=== PATIENT | female | born 1950 | race Caucasian/White ===

== ENCOUNTER 2024-08-05 16:31 | Emergency (ER) | payer MEDICARE, BC, SELFPAY ==
[2024-08-05 17:00] VITALS: BP 149/73; PULSE 84; RESP 18; TEMP 36.9; O2SAT 97
[2024-08-05 17:01] VITALS: PULSE 82; RESP 20; O2SAT 99; BMI 23.5
--- NOTE | 2024-08-05 17:19 | XR_ITS ---
Examination:Left hip AP, lateral, AP pelvis 3 views Technique: Hip AP lateral, AP pelvis, 3 views Exam date and time:August 05, 2024 1729 hrs. Indications: Patient fell today with into the hip, hip pain Findings: Acute displaced left femoral neck fracture Prominent osteopenia Right hip bones of the pelvis intact Impression: Acute displaced left femoral neck fracture.
--- NOTE | 2024-08-05 17:22 | PD.EDRME ---
Rapid Medical Screening Exam RME Arrival date/time: 08/05/24 16:31 Chief Complaint: Fall Vital signs: Vital Signs Temperature 98.5 F 08/05/24 17:00 Pulse Rate 84 08/05/24 17:00 Respiratory Rate 18 08/05/24 17:00 Blood Pressure 149/73 H 08/05/24 17:00 Pulse Oximetry (%) 97 08/05/24 17:00 Oxygen Delivery Method Room Air 08/05/24 17:00 RME Narrative: 73-year-old female with a history of hypothyroid, does not take blood thinners, had a ground level fall while she was trying to hang decorations and being tangled by the leash of her dog. She landed on her left hip without injury to her head or neck. She complains primarily of left hip pain but is not able to bear weight therefore EMS was called. Focused examination reveals an externally rotated left leg that is not shortened, however has significant pain to internal and external rotation. Remainder of LLE nl. Focused workup initiated and further encounter and workup be done by the additional provider.
[2024-08-05 18:25] VITALS: BP 119/66; PULSE 81; RESP 16; TEMP 37.2; O2SAT 97
--- NOTE | 2024-08-05 18:38 | EKG_ITS ---
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
--- NOTE | 2024-08-05 19:35 | PC.NURSE ---
[facility] FAXED PAPERWORK FOR POSSIBLE ORTHO TRANSFER
--- NOTE | 2024-08-05 19:35 | PC.NURSE ---
[facility] FAXED PAPERWORK FOR POSSIBLE ORTHO TRANSFER
[2024-08-05 19:38] LABS: Basophils % (Auto) 0 % (0-2.5); Eosinophils # (Auto) 0.2 Thou/mm3 (0.0-0.5); Eosinophils % (Auto) 1 % (0-10); Hematocrit 36.1 % (36.0-46.0); Hemoglobin 11.9 g/dL (12.0-16.0); Immature Granulocytes % (Auto) 2 % (0-0); Immature Granulocytes Auto 0.26 Thou/mm3 (0.00-0.00); Lymphocytes # (Auto) 0.8 Thou/mm3 (1.0-4.8); Lymphocytes % (Auto) 5 % (10-50); Mean Corpuscular Hemoglobin 30.6 pg (25.0-35.0); Mean Corpuscular Volume 93 fL (80-100); Monocytes # (Auto) 1.7 Thou/mm3 (0.0-0.8); Monocytes % (Auto) 11 % (0-12); Neutrophils # (Auto) 13.4 Thou/mm3 (1.8-7.7); Neutrophils % (Auto) 81 % (37-80); Nucleated Red Blood Cell % 0 /100 WBC (0); Platelet Count 154 Thou/mm3 (140-440); RDW Standard Deviation 47.7 fL (36.4-46.3); Red Blood Count 3.89 Miln/mm3 (4.00-5.20); White Blood Count 16.4 Thou/mm3 (3.6-11.0)
[2024-08-05] MEDS: SODIUM CHLORIDE 0.9% 500 ML 500 ML 999 ML IV (19:49)
[2024-08-05] MEDS: HYDROmorphone INJ 2 MG/ML VIAL 0.5 MG IVP ×3 (19:49→22:43)
[2024-08-05] MEDS: ONDANSETRON INJ 2 MG/ML INJ 2 ML 4 MG IV (19:50)
[2024-08-05 20:00] LABS: INR 1.1 (0.9-1.3); Partial Thromboplastin Time 27.3 Seconds (22.0-36.0); Prothrombin Time 12.1 Seconds (9.0-12.2)
[2024-08-05 20:01] LABS: Alanine Aminotransferase 17 U/L (10-49); Albumin, Serum 4.6 gm/dL (3.4-4.8); Albumin/Globulin Ratio 1.9 (1.2-2.2); Alcohol, Blood Medical < 3.0 mg/dL (0-10.0); Alkaline Phosphatase 47 U/L (46-116); Anion Gap 8 (7-16); Aspartate Amino Transferase 19 U/L (0-34); BUN/Creatinine Ratio 16 Ratio (12-20); Bilirubin,Total 0.9 mg/dL (0.3-1.2); Blood Urea Nitrogen 11 mg/dL (9-23); Calcium 9.8 mg/dL (8.3-10.6); Calcium (Corrected) 9.8 mg/dL (8.5-10.1); Carbon Dioxide 26.1 mMol/L (20.0-31.0); Chloride 102 mMol/L (98-107); Creatinine (Component) 0.7 mg/dL (0.6-1.3); Estimated Creatinine Clearance 69.6 mL/min (>60); Globulin 2.4 gm/dL (2.3-3.5); Glucose 107 mg/dL (74-106); Lipase 33 U/L (12-53); Osmolality,Calculated 271 (275-295); Potassium 3.4 mMol/L (3.4-5.1); Sodium 136 mMol/L (136-145); Troponin I < 0.020 ng/mL (0.0-0.045); eGFR > 60 See Note
--- NOTE | 2024-08-05 20:26 | PC.NURSE ---
THIS PT IS ACCEPTED TO [facility] BY DR. MARLYN MCGINNIS. THIS IS A ER:ER TRANSFER AND NUMBER FOR REPORT IS [phone]. [facility] WAS THE FACILITY REP I SPOKE WITH FOR ACCEPTING.
[2024-08-05 20:38] VITALS: BP 119/71; PULSE 88; RESP 18; O2SAT 98
--- NOTE | 2024-08-05 20:44 | EDNOTE_ITS ---
ED Fall Injury RME/HPI General Chief Complaint: Fall Stated Complaint: fall Time Seen by Provider: 08/05/24 18:19 Arrival date/time: 08/05/24 16:31 RME / HPI RME / HPI Narrative: 73-year-old female with a history of hypothyroid, does not take blood thinners, had a ground level fall while she was trying to hang decorations and being tangled by the leash of her dog. She landed on her left hip without injury to her head or neck. She complains primarily of left hip pain but is not able to bear weight therefore EMS was called. Focused examination reveals an externally rotated left leg that is not shortened, however has significant pain to internal and external rotation. Remainder of LLE nl. Focused workup initiated and further encounter and workup be done by the additional provider. Dr. Mckeon?s Main ED Evaluation: 73-year-old female with history of hypothyroidism presents to the emergency department via EMS after ground-level fall at home. Patient states she was walking her dog when the leash got tangled in her legs. She fell down hard on her left side, landing on her left hip. Patient states she was unable to stand after that and crawled into her kitchen where she called family and EMS. EMS brought her to the emergency department. Patient denies head strike, loss of consciousness, symptoms prior to the fall. Patient denies neck pain, focal neurologic complaints. 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 No shortness of breath, abdominal pain, lower back pain, upper back pain. No flank pain. No right lower extremity or upper extremity pain. No chest pain or dyspnea. Related Data Home Medications ?Medication ?Instructions ?Recorded ?Confirmed No Known Home Medications 10/23/17 10/23/17 Allergies Allergy/AdvReac Type Severity Reaction Status Date / Time latex Allergy Severe RASH ALL Verified 05/15/21 15:21 OVER peanut Allergy Severe Swelling Verified 05/15/21 15:21 of Lip/Tongue/Throat Review of Systems Review of Systems Systems Reviewed: All systems reviewed, normal except as documented Past Medical History Past Medical History CARDIAC: Negative Cardiac Disorders or Congestive Heart Failure RESPIRATORY: Negative Chronic Obstructive Pulmonary Disease (COPD) or Asthma GENITOURINARY: Negative Renal Disease ENDOCRINE: Positive Hypothyroidism; Negative Diabetes Mellitus Type 1 or Diabetes Mellitus Type 2 HEMATOLOGIC: Negative Sickle Cell Disease Social History SMOKING STATUS: Never smoker ED Exam Narrative Physical exam: GENERAL APPEARANCE: alert and oriented x 4, well-developed, well-nourished, no acute distress VITALS: All vitals were reviewed and the pulse ox is 98% on room air, which is normal according to my interpretation. HEENT: Normocephalic, atraumatic; pupils equal, round, reactive to light; EOMI; mucous membranes pink, moist; oropharynx clear; no midline C-spine tenderness NECK: Supple LUNGS: CTABL; no wheezes, no rales, no rhonchi HEART: Regular rate, regular rhythm; normal S1, S2; no murmurs ABDOMEN: non distended; normal BS; soft, no tenderness, no guarding, no rebound; no masses, no organomegaly, no hernia BACK: no CVA tenderness EXTREMITIES: LLE is shortened and externally rotated with exquisite tenderness to palpation of that limb, normal pulses to the posterior tibia and dorsalis pedis on the LLE, cap refill is less than 2 seconds to the LLE, no edema NEUROLOGIC: awake; alert and oriented x4; cranial nerves II-XII grossly intact; no focal sensory or motor deficits PSYCHIATRIC: appropriate mood and affect SKIN: warm, dry, normal color; no rashes Course Quality Measures none Orders Category Date Time Status Advisory Application Developer NOW Care 08/05/24 18:39 Completed Continuous Pulse Oximetry NOW Care 08/05/24 18:38 Completed EKG (ED ONLY) *Do not use* NOW Care 08/05/24 18:39 Completed Insert IV NOW Care 08/05/24 18:39 Completed NPO NOW Care 08/05/24 18:38 Completed EKG (ED Only) Stat Exams 08/05/24 18:38 Draft XR hip LT w pelvis 2-3V Stat Exams 08/05/24 17:19 Completed Alcohol, Blood Medical Stat Lab 08/05/24 19:24 Completed CBC Stat Lab 08/05/24 19:24 Completed Comprehensive Metabolic Panel Stat Lab 08/05/24 19:24 Completed Lipase Stat Lab 08/05/24 19:24 Completed Partial Thromboplastin Time Stat Lab 08/05/24 19:24 Completed Prothrombin Time with INR Stat Lab 08/05/24 19:24 Completed Troponin I Stat Lab 08/05/24 19:24 Completed Urinalysis Stat Lab 08/05/24 21:40 Completed HYDROmorphone INJ [Dilaudid Inj] Med 08/05/24 18:45 Discontinued 0.5 mg IVP Q30MIN PRN Morphine Inj [Morphine Sulf Inj] Med 08/05/24 17:20 Discontinued 4 mg IV X1 PRN Ondansetron Inj [Zofran Inj] Med 08/05/24 18:43 Discontinued 4 mg IV X1 ONE Sodium Chloride 0.9% 500 ml [Ns] 500 ml Med 08/05/24 18:38 Discontinued IV 999 mls/hr Vital Signs Vital signs: Vital Signs Temperature 98.5 F 08/05/24 17:00 Pulse Rate 84 08/05/24 17:00 Respiratory Rate 18 08/05/24 17:00 Blood Pressure 149/73 H 08/05/24 17:00 Pulse Oximetry (%) 97 08/05/24 17:00 Oxygen Delivery Method Room Air 08/05/24 17:00 Fall MDM Narrative MDM Narrative:: Patient has a left-sided femoral neck fracture. After phone calls the patient was accepted at [facility] by Dr. Joe Coker (orthopod). She is to be transferred. Patient was given Dilaudid 0.5 mg IV push every 30 minutes as needed pain as well as Zofran and fluids Patient data External records reviewed:: [facility] previous records (Per chart review, patient has no relevant previous ED visits or admissions to this facility.) Clinical information provided by:: patient Social determinants that could affect healthcare access:: none Patient has the following chronic illnesses:: none How is presenting disease/condition affected by chronic disease/condition?: no chronic disease Evaluation data The following diagnostics were reviewed and interpreted by me:: lab results, radiology exam(s) and EKG tracing(s) Lab and/or radiology exams considered but not ordered:: none Interpretation Summary: WBC count is elevated at 16.4, CMP is normal, troponin is normal, UA is unremarkable, blood alcohol is negative, according to my interpretation. EKG done at 1916, NSR, rate of 79, normal axis, no ectopy, no acute ischemia, according to my interpretation. ---- [facility] Report Signed Patient: RACHELLE CABRERA [facility]. Record#: [id number] Birthdate: 1950 Age/Sex: 73 / F Location: [facility] Attending Dr: Ordering Physician: Felipe North MD Date of Service: 08/05/24 Procedure(s): XR hip LT w pelvis 2-3V Accession Number(s): [id number] cc: Karyna Marquez MD; Felipe North MD; Gonzalez Tomas MD~ Examination:Left hip AP, lateral, AP pelvis 3 views Technique: Hip AP lateral, AP pelvis, 3 views Exam date and time:August 05, 2024 1729 hrs. Indications: Patient fell today with into the hip, hip pain Findings: Acute displaced left femoral neck fracture Prominent osteopenia Right hip bones of the pelvis intact Impression: Acute displaced left femoral neck fracture. Dictated By: Gonzalez Tomas MD Signed By: <Electronically signed by Gonzalez Tomas MD in OV> 08/05/24 1802 Medications / Prescriptions Medications or Prescriptions considered but not ordered:: none Medication administrations:: Medication Administration History Discontinued Medications Hydromorphone HCl (Hydromorphone Inj 2 Mg/Ml Vial) 0.5 mg IVP Q30MIN PRN PRN Reason: PAIN RATED 7-10 Stop: 08/06/24 18:44 Last Admin: 08/05/24 22:43 Dose: 0.5 mg Documented By: Admin: 08/05/24 21:20 Dose: 0.5 mg Documented By: Admin: 08/05/24 19:49 Dose: 0.5 mg Documented By: TC Sodium Chloride (Ns) 500 mls @ 999 mls/hr IV .Q31M ONE Stop: 08/05/24 19:08 Last Infusion: 08/05/24 20:45 Dose: Infused Documented By: Admin: 08/05/24 19:49 Dose: 999 mls/hr Documented By: TC Morphine Sulfate (Morphine Sulf Inj 4 Mg/Ml Vial) 4 mg IV X1 PRN PRN Reason: PAIN Stop: 08/05/24 20:19 Ondansetron HCl (Ondansetron Inj 2 Mg/Ml Inj 2 Ml) 4 mg IV X1 ONE; Protocol Stop: 08/05/24 18:44 Last Admin: 08/05/24 19:50 Dose: 4 mg Documented By: TC see above Consultations Consultation(s) initiated? (list below): Yes Diagnosis Fall Differential Diagnosis: other (fracture, dislocation, contusion) Most likely diagnosis given after review of the tests above:: see below Admission Indicated Admission indicated?: not indicated Explain why admission is indicated or not indicated:: Patient requires a higher [id number] where there is an orthopedic surgeon available. Admission Request Was there a request for admission?: No Disposition Plan Disposition Plan: Transfer Discharge Plan Plan Patient Disposition: [facility] Prescriptions/Referrals Prescriptions/Med Rec: No Action No Known Home Medications Referrals: Karyna Marquez MD [Primary Care Provider] - In 1 week Problem List Clinical Impression: Femoral neck fracture, Ground-level fall Patient/Caregiver Discharge Instructions Print Language: Montserratian Stand Alone Forms: Jackie Award Info., Patient Portal Info Letter
[2024-08-05 21:44] LABS: Collection Type, Urine Clean Catch
[2024-08-05 21:49] LABS: Bilirubin,Urine Negative (Negative); Blood,Urine Negative (Negative); Clarity,Urine Clear (Clear/Hazy); Color,Urine Lt-Yellow (Lt Yel-Yel); Glucose, Urine Negative (Negative); Ketones,Urine 1+ (Negative); Leukocyte Esterase,Urine Negative (Negative); Nitrite,Urine Negative (Negative); PH,Urine 5.5 (5.0-7.0); Protein,Urine Negative (Neg - Trace); RBC,Urine < 1 /hpf (0-3); Specific Gravity,Urine 1.017 (1.001-1.035); Squamous Epithelial Cell,Urine < 1 /hpf (0-5); Urobilinogen,Urine Negative mg/dL (0.0-1.0); WBC,Urine < 1 /hpf (0-5)
--- NOTE | 2024-08-05 21:49 | PC.NURSE ---
two attempts to call report, first attempt @ 2138 and 2nd attempt @ 2148 phone goes to voicemail each time. message left to call for report
== END 2024-08-05 22:59 | disposition short-term general hospital (02) ==
PROVIDERS: Emergency Provider Emergency Medicine; PCP Internal Medicine
DX: S72.002A Fracture of unspecified part of neck of left femur, initial encounter for closed fracture (principal); I44.0 Atrioventricular block, first degree; W18.30XA Fall on same level, unspecified, initial encounter; Z75.1 Person awaiting admission to adequate facility elsewhere
CPT/HCPCS: 36415; 73502; 80053; 80320; 81001; 83690; 84484; 85025; 85610; 85730; 93005; 96361; 96374; 96375; 99285; J2405; J3490; J7040; G0480

== ENCOUNTER 2025-01-06 02:32 | Inpatient (IN) | payer MEDICARE, BC, SELFPAY ==
[2025-01-06 02:32] VITALS: BMI 23.5
[2025-01-06 02:39] VITALS: BP 159/79; PULSE 80; RESP 18; TEMP 36.7; O2SAT 100
--- NOTE | 2025-01-06 02:52 | PD.EDRME ---
Rapid Medical Screening Exam E Arrival date/time: 01/06/25 02:32 Chief Complaint: Extremity Injury, Upper Time Seen by Provider: 01/06/25 02:36 Vital signs: Vital Signs Temperature 98.1 F 01/06/25 02:39 Pulse Rate 80 01/06/25 02:39 Respiratory Rate 18 01/06/25 02:39 Blood Pressure 159/79 H 01/06/25 02:39 Pulse Oximetry (%) 100 01/06/25 02:39 Oxygen Delivery Method Room Air 01/06/25 02:39 E Narrative: Right index finger poked by a stinging nettle 2 days ago, c/o swelling and redness to right index finger that has gradually worsened since onset.
--- NOTE | 2025-01-06 02:54 | XR_ITS ---
Examination: Fingers, right hand second digit 3 views Technique: AP, oblique, lateral views right hand second digit 3 views. Exam date and time: January 06, 2025 0307 hours INDICATIONS: Puncture injury to the hand 2 days ago with index finger swelling and pain FINDINGS: Soft tissue swelling about the second digit No fracture. No cortical bone destruction No foreign body IMPRESSION: No cortical bone destruction or foreign body
[2025-01-06 04:29] VITALS: BP 156/76; PULSE 76; RESP 18; TEMP 36.9; O2SAT 98
[2025-01-06 04:53] LABS: Basophils % (Auto) 0 % (0-2.5); Eosinophils # (Auto) 0.1 Thou/mm3 (0.0-0.5); Eosinophils % (Auto) 1 % (0-10); Hematocrit 38.6 % (36.0-46.0); Hemoglobin 12.9 g/dL (12.0-16.0); Immature Granulocytes % (Auto) 1 % (0-0); Immature Granulocytes Auto 0.06 Thou/mm3 (0.00-0.00); Lymphocytes # (Auto) 1.4 Thou/mm3 (1.0-4.8); Lymphocytes % (Auto) 14 % (10-50); Mean Corpuscular HGB Conc 33.4 g/dl (31.0-37.0); Mean Corpuscular Hemoglobin 30.1 pg (25.0-35.0); Mean Corpuscular Volume 90 fL (80-100); Monocytes % (Auto) 22 % (0-12); Neutrophils # (Auto) 5.9 Thou/mm3 (1.8-7.7); Neutrophils % (Auto) 63 % (37-80); Nucleated Red Blood Cell % 0 /100 WBC (0); Platelet Count 169 Thou/mm3 (140-440); RDW Standard Deviation 48.4 fL (36.4-46.3); Red Blood Count 4.29 Miln/mm3 (4.00-5.20); White Blood Count 9.5 Thou/mm3 (3.6-11.0)
[2025-01-06 05:17] LABS: Alanine Aminotransferase 14 U/L (10-49); Albumin, Serum 4.7 gm/dL (3.4-4.8); Albumin/Globulin Ratio 1.6 (1.2-2.2); Alkaline Phosphatase 60 U/L (46-116); Anion Gap 9 (7-16); Aspartate Amino Transferase 15 U/L (0-34); BUN/Creatinine Ratio 19 Ratio (12-20); Blood Urea Nitrogen 13 mg/dL (9-23); C-Reactive Protein < 0.5 mg/dL (0.0-0.9); Calcium 10.1 mg/dL (8.3-10.6); Calcium (Corrected) 10.1 mg/dL (8.5-10.1); Carbon Dioxide 26.2 mMol/L (20.0-31.0); Chloride 105 mMol/L (98-107); Creatinine (Component) 0.7 mg/dL (0.6-1.3); Estimated Creatinine Clearance 68.6 mL/min (>60); Globulin 2.9 gm/dL (2.3-3.5); Glucose 113 mg/dL (74-106); Osmolality,Calculated 280 (275-295); Potassium 3.9 mMol/L (3.4-5.1); Procalcitonin 0.07 ng/ml (0.0-0.49); Sodium 140 mMol/L (136-145); Total Protein 7.6 gm/dL (5.7-8.2); eGFR > 60 See Note
[2025-01-06 05:18] LABS: Sed Rate (ESR) 24 mm/hr (0-30)
--- NOTE | 2025-01-06 07:22 | PC.NURSE ---
Pt sitting up on stretcher upon assumption of care, reports that her pain is better but still there. Pt states she is ready to get home to her dogs.
--- NOTE | 2025-01-06 08:04 | PD.EDUPEX ---
Upper Extremity Injury RME/HPI General Chief Complaint: Extremity Injury, Upper Stated Complaint: RT HAND SWELLING X 2DAYS Time Seen by Provider: 01/06/25 02:36 Arrival date/time: 01/06/25 02:32 RME / HPI RME / HPI narrative: Right index finger poked by a stinging nettle 2 days ago, c/o swelling and redness to right index finger that has gradually worsened since onset. DR. MERRILL MAIN ED EVALUATION: 74 year old female presents to the ED for complaint of worsening right hand pain and swelling. Patient reports 3 days ago while gardening, she came into contact with sticky nettle , and while handling caused a puncture wound to right index finger (dominant hand). Initially symptoms were improving, but around midnight last night, she experienced throbbing pain, redness, and increased warmth in the hand. Additionally complains of diarrhea. She notes that she has had prior episodes of hand swelling after contact with sticky nettle, though never to this severity. Denies any drainage of pus from hand. Denies fevers or chills. Related Data Home Medications ?Medication ?Instructions ?Recorded ?Confirmed No Known Home Medications 10/23/17 10/23/17 Allergies Allergy/AdvReac Type Severity Reaction Status Date / Time latex Allergy Severe RASH ALL Verified 05/15/21 15:21 OVER peanut Allergy Severe Swelling Verified 05/15/21 15:21 of Lip/Tongue/Throat Review of Systems Review of Systems Narrative Review of Systems: Constitutional: DENIES; Fevers Eyes: DENIES; Loss of vision Head/Ear/Nose: DENIES; Loss of hearing Throat: DENIES; Dysphagia Cardiovascular: DENIES; Chest pain, dyspnea or syncope Respiratory: DENIES; Shortness of breath Gastrointestinal: DENIES; Rectal bleeding or melena. Genitourinary: DENIES; Dysuria (painful or difficult urination) Musculoskeletal: SEE HPI Skin: DENIES; Rash Neurological: DENIES; Loss of function or movement Psychiatric: DENIES; recent major life stressor, emotional problem, illicit drug use or abuse Endocrinology: DENIES; Weight change Hematologic/Lymphatic: DENIES; Abnormal bruising Allergic/Immunologic: DENIES; Urticaria (hives) Past Medical History Past Medical History CARDIAC: Negative Cardiac Disorders or Congestive Heart Failure RESPIRATORY: Negative Chronic Obstructive Pulmonary Disease (COPD) or Asthma GENITOURINARY: Negative Renal Disease ENDOCRINE: Positive Hypothyroidism; Negative Diabetes Mellitus Type 1 or Diabetes Mellitus Type 2 HEMATOLOGIC: Negative Sickle Cell Disease Social History SMOKING STATUS: Never smoker ED Exam Narrative Physical exam: Physical Exam: General: The vital signs were reviewed. The patient is non-toxic, in no apparent distress and appears healthy with a patent airway, no respiratory distress and has no apparent circulatory problems. Head & Scalp: Normocephalic, atraumatic. Face: Appears normal and is without lesions, deformity. Ears: Left external pinna appears normal. Right external pinna appears normal. Eyes: The sclera is anicteric. No obvious photophobia. The Left and Right Orbit/Lid/Conjunctiva appears normal without swelling, discoloration or injection. Nose: The nose is without deformity, discharge or tenderness; Throat: Appears normal. The mucous membranes are pink and moist without exudates, redness or mass seen. The tongue appears normal. Neck: The neck is supple and no apparent mass or adenopathy. Chest: The chest wall is normal in size and symmetry and has no chest wall tenderness or crepitus. The patient displays normal ventilator effort without retractions, accessory muscle use and has adequate air movement bilaterally with no wheezes and no rales. Cardiovascular: Regular rate and rhythm; No murmurs, rubs, or gallops; Gastrointestinal: The abdomen appears normal. No obvious hernias or mass. The abdomen is soft and benign, non-distended, with no pain, no guarding and no rebound tenderness. Bowel sounds are present and normal sounding. No CVA tenderness. Genitourinary: Back/Spine: Extremities/Musculoskeletal/lymphatic: Right index finger has a punctate lesion in the mid phalanx on the palmar side with redness and induration extending onto the palmar aspect just proximal to the MCP area and there is some redness extending onto the dorsum where the 2nd and 3rd MCPs lie and puffiness there is no tenosynovitis of the 3rd through 5th fingers. The palmar aspect has no tenderness on palpation there is some tenderness on the finger. The fingers and hand is neurovascularly intact. The bilateral upper and lower extremities are warm. There is no evidence of arterial insufficiency. There is no evidence of venous insufficiency/edema. The patient spontaneously moves bilateral upper and lower extremities with no pain and no limitation of movement. There is no apparent, injury or trauma. Skin: The skin is warm, dry and intact. No rashes. No petechia. No purpura. No abnormal bruising. The color is appropriate with no cyanosis. Mental status/Psychiatric: Mental status is appropriate for age. The patient has no apparent delusions, visual hallucinations, no apparent audible hallucinations. The patient has no apparent suicidal thoughts/ideation and no apparent homicidal thoughts/ideation. Neurological: The patient is awake, alert, interactive, cordial, cooperative and is oriented to name and situation. The patient follows commands and answers historical question with no impairment. There is no visual disturbance apparent. The pupils are equal and reactive bilaterally with normal eye movements and no diplopia The bilateral upper and lower extremities have normal strength, normal range of motion and normal functioning. The gait, station and balance appear to be baseline with no acute change Course Quality Measures none Orders Category Date Time Status Admit to Inpatient Status Routine Admission 01/06/25 11:47 Active Patient Condition Routine Admission 01/06/25 11:46 Ordered Activity as Tolerated Routine Care 01/06/25 11:48 Ordered Notify provider NEEDED Care 01/06/25 11:46 Active Sequential Compression Device QSHIFT Care 01/06/25 11:46 Active Consult to Orthopedic Stat Cons 01/06/25 10:00 Ordered Diet Regular Diet 01/06/25 Lunch Active XR finger RT min 2V Stat Exams 01/06/25 02:54 Completed Blood Culture (Lab) Stat Lab 01/06/25 04:10 Received CBC AM DRAW Lab 01/07/25 05:00 Ordered CBC AM DRAW Lab 01/08/25 05:00 Ordered CBC AM DRAW Lab 01/09/25 05:00 Ordered CBC Stat Lab 01/06/25 04:10 Completed CMP [Comprehensive Metabolic Panel] Stat Lab 01/06/25 04:10 Completed CRP [C-Reactive Protein] Stat Lab 01/06/25 04:10 Completed Comprehensive Metabolic Panel AM DRAW Lab 01/07/25 05:00 Ordered Comprehensive Metabolic Panel AM DRAW Lab 01/08/25 05:00 Ordered Comprehensive Metabolic Panel AM DRAW Lab 01/09/25 05:00 Ordered ESR [Sed Rate (ESR)] Stat Lab 01/06/25 04:10 Completed Lactate (Lactic Acid) Stat Lab 01/06/25 04:10 Completed Magnesium AM DRAW Lab 01/07/25 05:00 Ordered Magnesium AM DRAW Lab 01/08/25 05:00 Ordered Magnesium AM DRAW Lab 01/09/25 05:00 Ordered Phosphorous AM DRAW Lab 01/07/25 05:00 Ordered Phosphorous AM DRAW Lab 01/08/25 05:00 Ordered Phosphorous AM DRAW Lab 01/09/25 05:00 Ordered Procalcitonin Stat Lab 01/06/25 04:10 Completed Thyroid Stimulating Hormone Routine Lab 01/07/25 11:49 Ordered Acetaminophen Tab [Tylenol Tab] Med 01/06/25 11:46 Ordered 650 mg PO Q6H PRN Bupivacaine Mpf 0.5% [Sensorcaine-Mpf Inj 0.5%] Med 01/06/25 10:45 Discontinued 10 ml INFL X1 ONE Patient's Own Med [Patient's Own Medication] Med 01/07/25 02:00 Once 75 ea PO X1 ONE Piper/Tazo 3.375 gm Premix [Zosyn] Med 01/06/25 07:48 Discontinued 3.375 gm in 50 ml IV X1 Vancomycin Pharmacy to Dose Med 01/07/25 09:00 Ordered 1 each IV QDAY Vancomycin/Ns 1 gm Ivpb 200 ml Med 01/06/25 07:48 Discontinued IV X1 cefTRIAXone [Rocephin] 1 gm Med 01/06/25 11:50 Ordered SODIUM CHLORIDE 0.9% (Popper) [Ns 0.9% (P)] 50 ml IV QDAY Code Status Routine Oth 01/06/25 11:46 Ordered Oxygen Delivery PRN RT 01/06/25 11:46 Active Vital Signs Vital signs: Vital Signs Temperature 98.1 F 01/06/25 02:39 Pulse Rate 80 01/06/25 02:39 Respiratory Rate 18 01/06/25 02:39 Blood Pressure 159/79 H 01/06/25 02:39 Pulse Oximetry (%) 100 01/06/25 02:39 Oxygen Delivery Method Room Air 01/06/25 02:39 Pulse ox is 100% on room air which is adequate. Extremity Injury MDM Narrative MDM Narrative:: Belinda Cedillo am scribing for and in the presence of Dr. Merrill. Patient has an obvious puncture wound to the finger with a cellulitis moving up the finger but there is no tenosynovitis involving the hand and the palmar area does not appear to have any significant involvement at this time. Because the redness does extend to the MCP I had the orthopedic Dr Helton come down to look at this and he agrees this patient we manage here with IV antibiotics would not need referral or transfer to a hand specialist. Medical workup includes a CBC with a white count of 9.5 hemoglobin 12.9. ESR is 24 electrolytes are normal kidney function is normal lactic acid is normal X-ray of the hand reveals no fracture dislocation foreign body there is no gas in some tissue there is no cortical erosions. This is read by myself. 0845: I spoke with ortho Dr. Helton as noted below. 0910: Dr. Helton agrees to consult. He also said this patient does not need surgery and does not need to be transferred as we can manage this care request that we get Dr Clark to consult on antibiotics. 1001: I spoke with resident Dr. Miranda regarding admission as noted below. Procedure note patient has a small puncture wound in the palmar aspect of the second middle phalanx of the second finger is not bleeding there is no purulent discharge. Patient was verbally consented to I&D this and the procedure is as follows. Right index finger was prepped with Betadine. 0.5% bupivacaine was used with a local anesthetic over the wound. 11 blade was then used to make a small incision approximately 3 mm and then some blunt dissection was used to open up the dermis. There was no pus expressed. There was no foreign body found. The wound was washed with saline and then dressed no culture was was taken as there was no purulent material. Patient had less than 5 cc blood loss and tolerated the procedure well Hospitalist team came down saw the patient and agreed to admit Patient data External records reviewed:: [facility] previous records (I reviewed ED visit on 08/05/2024 for hip fx ) Clinical information provided by:: patient Social determinants that could affect healthcare access:: none Patient has the following chronic illnesses:: Hypothyroidism How is presenting disease/condition affected by chronic disease/condition?: uneffected by Evaluation data The following diagnostics were reviewed and interpreted by me:: lab results and radiology exam(s) Lab and/or radiology exams considered but not ordered:: None Interpretation Summary: Ordering Physician: Jaden Sparks PA-C Date of Service: 01/06/25 Procedure(s): XR finger RT min 2V Accession Number(s): [id number] cc: Kellie Jules MD; Gonzalez Tomas MD; Jaden Sparks PA-C~ Examination: Fingers, right hand second digit 3 views Technique: AP, oblique, lateral views right hand second digit 3 views. Exam date and time: January 06, 2025 0307 hours INDICATIONS: Puncture injury to the hand 2 days ago with index finger swelling and pain FINDINGS: Soft tissue swelling about the second digit No fracture. No cortical bone destruction No foreign body IMPRESSION: No cortical bone destruction or foreign body Dictated By: Gonzalez Tomas MD Signed By: <Electronically signed by Gonzalez Tomas MD in OV>01/06/25 0750 Medications / Prescriptions Medications or Prescriptions considered but not ordered:: None Medication administrations:: Medication Administration History Acetaminophen (Acetaminophen 325 Mg Tablet) 650 mg PO Q6H PRN PRN Reason: Fever >101.5 Stop: 02/05/25 11:45 Ceftriaxone Sodium 1 gm/ (Sodium Chloride) 50 mls @ 100 mls/hr IV QDAY TWYLA Stop: 01/13/25 11:49 Patient Own Medication (Patient's Own Med 1 Ea Ea) 75 ea PO X1 ONE Stop: 01/07/25 02:01 Pharmacy Consult (Vancomycin Pharmacy To Dose 1 Each Each) 1 each IV QDAY TWYLA Stop: 02/06/25 08:59 Discontinued Medications Bupivacaine HCl (Bupivacaine Mpf 0.5% 10 Ml Vial) 10 ml INFL X1 ONE Stop: 01/06/25 10:46 Vancomycin/Sodium Chloride (Vancomycin/Ns 1 Gm Ivpb) 200 mls @ 120 mls/hr IV X1 ONE Stop: 01/06/25 09:27 Last Admin: 01/06/25 08:14 Dose: 120 mls/hr Documented By: GENEVA Piperacillin/Tazobactam/Dextrose (Zosyn) 3.375 gm in 50 mls @ 100 mls/hr IV X1 ONE Stop: 01/06/25 08:17 Last Infusion: 01/06/25 08:42 Dose: Infused Documented By: Admin: 01/06/25 08:12 Dose: 100 mls/hr Documented By: TM See above Consultations Consultation(s) initiated? (list below): Yes Consultation #1 (Physician, Specialty, Details): I spoke with ortho Dr. Helton. Discussed patients PMHx, HPI, ED course, exam findings, labs, and radiology results. States he will come evaluate the patient in the ED. Time: 08:45 Consultation #2 (Physician, Specialty, Details): Ortho Dr. Helton is at bedside. He agrees to consult. Advised we also consult ID Dr. Clark. Time: 09:10 Consultation #3 (Physician, Specialty, Details): I spoke with resident Dr. Miranda. Discussed patients PMHx, HPI, ED course, exam findings, labs, and radiology results. The hospitalist agree to accept the patient for admission. Time: 10:01 Diagnosis Upper Extremity Injury Differential Diagnosis: other (Cellulitis, abscess, septic arthritis ) Most likely diagnosis given after review of the tests above:: Finger cellulitis Admission Indicated Admission indicated?: indicated Admission Request Was there a request for admission?: Yes Admission Attestation Admission request attestation: Discussed case with [] from Hospitalist service regarding admission. Discussed patients ED course, exam findings, labs, and radiology results. The Hospitalist [agrees,declines] to accept the patient for admission. Disposition Plan Disposition Plan: Admit Discharge Plan Plan Patient Disposition: Admit Acute Care w/in Hospital Disposition Comment: Hospitalist admit Prescriptions/Referrals Prescriptions/Med Rec: No Action No Known Home Medications Referrals: Kellie Jules [Primary Care Provider] - In 1 week Problem List Clinical Impression: Cellulitis of finger, Puncture wound Patient/Caregiver Discharge Instructions Print Language: Ecuadorean Stand Alone Forms: Patient Portal Info Letter
[2025-01-06] MEDS: PIPER/TAZO 3.375 GM PREMIX 3.375 GM/50 ML BAG IV (08:12)
[2025-01-06] MEDS: VANCOMYCIN/NS 1 GM IVPB 200 ML IV ×2 (08:14→20:31)
--- NOTE | 2025-01-06 11:52 | ESHP_ITS ---
<Statement entered by Nona Thorne MD - 01/08/25 08:18> I reviewed above note and agree with findings and plans. I have also personally examined the patient with medicine team and went over assessment and plan with medical team including public health internship and resident physician. <Statement entered by Veto Ribera MD - 01/06/25 19:29> 74-year-old female coming in with right hand swelling after scratch from an outdoor plant. Patient started on IV antibiotics. Ortho following, no need for special hand surgeon at this time.case discuss with team. Veto Ribera MD PGY3. Documentation for date of: 01/06/25 HPI History of Present Illness History of present illness: Ms. River is a 74-year-old female has a past medical history significant for hypothyroidism presented to the ED complaining of right index finger swelling extending down into her palm. Patient states that she was gardening on Saturday and is allergic to a very specific plant which she previously has experience with and was pulling weeds. And injured her hand with a thorn of the plant she is allergic to. Patient states previously the swelling usually have gone down within 2 to 3 days however this time around patient noticed the swelling has progressively worsened by today and she felt the hand to be warm to touch. Patient denies any fevers or night chills denies any noticing pus coming out of the wound. Patient has no other complaints including denies chest pain palpitations abdominal pain dizziness or syncopal episodes. ED course In the ED patient blood pressure is 159/79, pulse 80 saturating on room air Labs are unremarkable including Pro-Kimo .07, C-reactive less than 0.5 In the ED patient received Zosyn x 1 and vancomycin x 1 Finger X-ray: No cortical bone destruction or foreign body -In the ED pt underwent incision and drainage PMH: Hypothyroidism PSH: Left hip surgery in July 2024 SH: denies tabacco, alcohol and drugs Home Meds: Synthroid 75mcg Review of Systems Review of Systems Systems Reviewed: All systems reviewed, normal except as documented Exam Vital Signs Temp Pulse Resp BP Pulse Ox O2 Del Method 98.5 F 76 18 156/76 H 98 Room Air 01/06/25 04:29 01/06/25 04:29 01/06/25 04:29 01/06/25 04:29 01/06/25 04:29 01/06/25 04:29 Narrative Exam GENERAL: A&Ox3 . Awake, cooperative female, Not in acute distress NEURO: no focal neurological deficits HEENT: Atraumatic, Normocephalic. mucous membranes moist. Eyes open, symmetrical, & clear HEART: Normal Heart Sounds LUNGS: Clear to auscultation with no wheezing or crackles. ABDOMEN: soft, non-distended, non-tender, bowel sounds heard, no guarding or rebound tenderness SKIN: No Rash or ecchymoses, right index finger swollen, erythematous with no drainage of pus noted EXTREMITIES: No edema, tenderness, able to move all 4 extremities, pedal pulses palpated Results: Labs 01/06/25 04:10 01/06/25 04:10 Labs: Short CBC 01/06/25 Range/Units 04:10 WBC 9.5 (3.6-11.0) Thou/mm3 Hgb 12.9 (12.0-16.0) g/dL Hct 38.6 (36.0-46.0) % Plt Count 169 (140-440) Thou/mm3 BMP 01/06/25 04:10 Sodium 140 Potassium 3.9 Chloride 105 Carbon Dioxide 26.2 BUN 13 Creatinine 0.7 Glucose 113 H Calcium 10.1 Liver Function 01/06/25 Range/Units 04:10 Total Bilirubin 1.0 (0.3-1.2) mg/dL AST 15 (0-34) U/L ALT 14 (10-49) U/L Alkaline Phosphatase 60 (46-116) U/L Albumin 4.7 (3.4-4.8) gm/dL Quality Measures Quality Measures none Advance care planning discussed with:: patient Medications Home Medications and Allergies Home Medications ?Medication ?Instructions ?Recorded ?Confirmed ?Type No Known Home Medications 10/23/1710/10 History Allergies Allergy/AdvReac Type Severity Reaction Status Date / Time latex Allergy Severe RASH ALL Verified 05/15/21 15:21 OVER peanut Allergy Severe Swelling Verified 05/15/21 15:21 of Lip/Tongue/Throat Visit Medications Acetaminophen (Acetaminophen 325 Mg Tablet) 650 mg PO Q6H PRN PRN Reason: Fever >101.5 Stop: 02/05/25 11:45 Ceftriaxone Sodium 1 gm/ (Sodium Chloride) 50 mls @ 100 mls/hr IV QDAY [facility] Stop: 01/13/25 11:49 Patient Own Medication (Patient's Own Med 1 Ea Ea) 75 ea PO X1 ONE Stop: 01/07/25 02:01 Pharmacy Consult (Vancomycin Pharmacy To Dose 1 Each Each) 1 each IV QDAY TWYLA Stop: 02/06/25 08:59 Discontinued Medications Bupivacaine HCl (Bupivacaine Mpf 0.5% 10 Ml Vial) 10 ml INFL X1 ONE Stop: 01/06/25 10:46 Vancomycin/Sodium Chloride (Vancomycin/Ns 1 Gm Ivpb) 200 mls @ 120 mls/hr IV X1 ONE Stop: 01/06/25 09:27 Last Admin: 01/06/25 08:14 Dose: 120 mls/hr Piperacillin/Tazobactam/Dextrose (Zosyn) 3.375 gm in 50 mls @ 100 mls/hr IV X1 ONE Stop: 01/06/25 08:17 Last Infusion: 01/06/25 08:42 Dose: Infused Assessment & Plan Plan Ms. River is a 74-year-old female has a past medical history significant for hypothyroidism presented to the ED complaining of right index finger swelling extending down into her palm. And injured her hand with a thorn of the plant she is allergic to. #Cellulitis 2/2 #Gardening injury s/p incision and drainage -Pt has a thorn injury during gardening on saturday, denies fevers, or abcess formation -Swelling of index finger progressively worsened adn noted to have erythema and warmth on the finger extending into her palm. -Finger X-ray: No cortical bone destruction or foreign body Plan: -Pt is s/p incision and draignage in the ED, no pus was noted -In the ED pt received dose of vancomycin and zosyn on 01/06 -started pt on vancomycin and rocephin 01/07- -Tylenol PRN for pain and fever #Calvin's -Resume patient's home Synthroid 75mcg Health Maintenance Disposition: Medsurg DVT Prophylaxis: SCD QSHIFT GI Prophylaxis: not indicated Diet: regular diet Lines: Peripheral lines Code status: Full Assessment and plan discussed with my senior resident Dr. Ribera & attending physician Dr. Fadumo Miranda (PGY-1)- Internal medicine resident
[2025-01-06 14:36] VITALS: BMI 27.3
[2025-01-06 15:04] VITALS: PULSE 86; RESP 18; RESP 95
[2025-01-06 16:00] VITALS: BP 146/76; PULSE 72; RESP 18; TEMP 36.7; O2SAT 99
[2025-01-06 17:41] VITALS: PULSE 81; RESP 19; RESP 97
[2025-01-06 20:00] VITALS: BP 125/63; PULSE 78; RESP 17; TEMP 36.9; O2SAT 96
--- NOTE | 2025-01-06 21:15 | PD.ORTHCON ---
HPI Consult details Reason for consultation narrative: Pain right index finger History of present illness: Patient is a 74-year-old very active woman who was gardening on Saturday or Saturday and had a puncture wound right index finger she then came in on Saturday with significant swelling markedly increased pain and was admitted for treatment of right hand cellulitis primarily involving index finger Past Medical History Past Medical History NEUROLOGIC: Negative Neurological Disorders CARDIAC: Negative Cardiac Disorders or Congestive Heart Failure RESPIRATORY: Negative Respiratory Disorders, Chronic Obstructive Pulmonary Disease (COPD) or Asthma GENITOURINARY: Negative Renal Disease REPRODUCTIVE: Negative Pelvic Inflammatory Disease MUSCULOSKELETAL: Negative Musculoskeletal Disorders ENDOCRINE: Positive Hypothyroidism; Negative Diabetes Mellitus Type 1 or Diabetes Mellitus Type 2 HEMATOLOGIC: Negative Sickle Cell Disease OTHER HISTORY: Negative Autoimmune Disease or Anesthesia Reactions Surgical History SURGICAL: Positive Hip Sx (08/08/24); Negative Cardiac Surgery Social History SMOKING STATUS: Never smoker Meds Home Medications and Allergies Home Medications ?Medication ?Instructions ?Recorded ?Confirmed ?Type No Known Home Medications 10/23/17 10/23/17 History Allergies Allergy/AdvReac Type Severity Reaction Status Date / Time latex Allergy Severe RASH ALL Verified 05/15/21 15:21 OVER peanut Allergy Severe Swelling Verified 05/15/21 15:21 of Lip/Tongue/Throat Exam Vital Signs Temp Pulse Resp BP Pulse Ox O2 Del Method 98.5 F 78 17 125/63 96 Room Air 01/06/25 20:00 01/06/25 20:00 01/06/25 20:00 01/06/25 20:00 01/06/25 20:00 01/06/25 20:00 Blood pressure 125/63; temperature 98.5 Narrative Exam Patient was seen this morning at 09 100 and again tonight at 2100. She had marked swelling this morning of the right index and fortunately no pain over the palmar aspect of the right hand there was no pain over the metacarpal phalangeal joint most of the swelling was dorsal and then she had a small puncture wound volar aspect middle phalange he right index finger. I saw her with Dr. Mercedes rico again and we agreed to admit the patient. She is going to be on IV antibiotics. He made a small incision in the area of the puncture wound and no pus was encountered. She is feeling much better tonight and the swelling is down remarkably. Results - Ortho Labs 01/06/25 04:10 01/06/25 04:10 Labs: Short CBC 04/30/25 Range/Units 04:10 WBC 9.5 (3.6-11.0) Thou/mm3 Hgb 12.9 (12.0-16.0) g/dL Hct 38.6 (36.0-46.0) % Plt Count 169 (140-440) Thou/mm3 BMP 01/06/25 04:10 Sodium 140 Potassium 3.9 Chloride 105 Carbon Dioxide 26.2 BUN 13 Creatinine 0.7 Glucose 113 H Calcium 10.1 Liver Function 01/06/25 Range/Units 04:10 Total Bilirubin 1.0 (0.3-1.2) mg/dL AST 15 (0-34) U/L ALT 14 (10-49) U/L Alkaline Phosphatase 60 (46-116) U/L Albumin 4.7 (3.4-4.8) gm/dL White count 9500 Assessment & Plan Additional Assessment Additional comments: Patient has very unremarkable past medical history. He has enjoyed excellent health. The only medicine she takes is levothyroxine. She is given up sugar many years ago and as result feels very healthy Plan IV antibiotics to cover strep and staph. The most common is strep no abscess formation in remarkably fast spreading goes along with the strep cellulitis. Again remarkable improvement just in the last 12 hours. Possibly can go home tomorrow afternoon.
[2025-01-06] MEDS: lorataDINE 10 MG TABLET PO (21:52)
[2025-01-07] VITALS: BP 133/73; PULSE 80; RESP 17; TEMP 36.5; O2SAT 96
[2025-01-07 04:00] VITALS: BP 134/66; PULSE 77; RESP 17; TEMP 36.4; O2SAT 95
[2025-01-07 05:58] LABS: Basophils # (Auto) 0.1 Thou/mm3 (0.0-0.2); Basophils % (Auto) 1 % (0-2.5); Eosinophils % (Auto) 0 % (0-10); Hematocrit 35.1 % (36.0-46.0); Hemoglobin 11.5 g/dL (12.0-16.0); Immature Granulocytes % (Auto) 1 % (0-0); Immature Granulocytes Auto 0.03 Thou/mm3 (0.00-0.00); Lymphocytes # (Auto) 1.3 Thou/mm3 (1.0-4.8); Lymphocytes % (Auto) 27 % (10-50); Mean Corpuscular HGB Conc 32.8 g/dl (31.0-37.0); Mean Corpuscular Hemoglobin 29.8 pg (25.0-35.0); Mean Corpuscular Volume 91 fL (80-100); Monocytes # (Auto) 1.5 Thou/mm3 (0.0-0.8); Monocytes % (Auto) 31 % (0-12); Neutrophils % (Auto) 40 % (37-80); Nucleated Red Blood Cell % 0 /100 WBC (0); Platelet Count 145 Thou/mm3 (140-440); Red Blood Count 3.86 Miln/mm3 (4.00-5.20); White Blood Count 4.9 Thou/mm3 (3.6-11.0)
[2025-01-07 06:58] LABS: Alanine Aminotransferase 8 U/L (10-49); Albumin, Serum 4.1 gm/dL (3.4-4.8); Albumin/Globulin Ratio 1.8 (1.2-2.2); Alkaline Phosphatase 52 U/L (46-116); Anion Gap 6 (7-16); Aspartate Amino Transferase 11 U/L (0-34); BUN/Creatinine Ratio 15 Ratio (12-20); Blood Urea Nitrogen 9 mg/dL (9-23); Calcium 9.5 mg/dL (8.3-10.6); Calcium (Corrected) 9.5 mg/dL (8.5-10.1); Carbon Dioxide 29.3 mMol/L (20.0-31.0); Chloride 107 mMol/L (98-107); Creatinine (Component) 0.6 mg/dL (0.6-1.3); Globulin 2.3 gm/dL (2.3-3.5); Glucose 96 mg/dL (74-106); Magnesium 2.1 mg/dL (1.6-2.6); Osmolality,Calculated 281 (275-295); Phosphorous 3.2 mg/dL (2.4-5.1); Sodium 142 mMol/L (136-145); Thyroid Stimulating Hormone 1.38 uIU/mL (0.55-4.78); Total Protein 6.4 gm/dL (5.7-8.2); eGFR > 60 See Note
[2025-01-07 07:39] VITALS: BP 125/76; PULSE 77; RESP 13; TEMP 37.1; O2SAT 95
[2025-01-07] MEDS: VANCOMYCIN/NS 1 GM IVPB 200 ML IV (09:07)
[2025-01-07 11:35] VITALS: BP 124/65; PULSE 72; RESP 16; TEMP 36.4; O2SAT 96
--- NOTE | 2025-01-07 13:34 | ESDS_ITS ---
Planned Discharge Date 01/07/25 DS: Providers Provider Date of admission: 01/06/25 11:46 Primary care physician: Kellie Jules Admitting Provider: Nona Thorne MD Attending Provider on Admission: Vinh Keller MD Consults: 01/06/25 10:00 Consult to Orthopedic Stat Comment: Finger infection Consulting Provider: Ruben Helton Attending Provider on DC: Vinh Keller MD Discharging Provider: Vinh Keller MD DS: Diagnosis Problem List Completed Was Problem List Reviewed/Reconciled?: Yes Hospital Course Hospital Course Hospital course: 74-year-old female with past medical history of hypothyroidism was admitted to the hospital on 12/10/2024 due to right index finger cellulitis. In the ED patient currently complains of right index finger pain and swelling which had worsened for the previous 3 days. Initial labs were unremarkable with no WBC elevation and a negative procalcitonin. Initial imaging included finger x-ray which did not show any foreign body or fractures. Patient in the ED underwent incision and drainage with no pus was seen. Patient was placed on vancomycin to cover for staph. Orthopedic surgeon saw the patient as well and stated that patient could be discharged home this afternoon. At this time patient swelling has improved as well as her pain and she has been able to move her finger a lot more. Wound looked clean without any purulent discharge and very mild tenderness when palpated. At this time patient is stable enough to be discharged home. Discharge plan: Please follow-up with primary care physician within 1 week upon discharge You have been started on cephalexin 500 mg 4 times daily and doxycycline 100 mg twice daily for 9 more days. Wound care: Keep wound clean and dry and change dressing daily Watch for signs of infection such as worsening pain, purulent discharge, worsening swelling, worsening of redness Keep hand elevated whenever possible to reduce swelling Avoid activities that could cause the wound to reopen or become irritated or infected such as gardening work until wound has closed. Please come back to the ED if you develop fevers, chills, worsening pain, worsening swelling or any other worsening symptoms. Problem list: #Cellulitis R index finger s/p incision and drainage #Calvin's Case disclosed with Attending Dr. Krishna Ireen PGY1 Status at Discharge Overall status at discharge: patient is progressing back to baseline Time Spent with Patient Time attestation: Total time spent providing and/or coordinating discharge services:>35 min Time spent: Greater than 30 minutes Exam Vital Signs Temp Pulse Resp BP Pulse Ox O2 Del Method 97.6 F 72 16 124/65 96 Room Air 01/07/25 11:35 01/07/25 11:35 01/07/25 11:35 01/07/25 11:35 01/07/25 11:35 01/07/25 11:35 Narrative Exam General: A/O x3, no acute distress, well-nourished, well-developed Eyes: PERRL, EOMI. Anicteric, vision grossly intact. Ears: No ear pain, no ear discharge, Hearing grossly intact. Nose: No nasal discharge. Mouth/Throat: Moist mucous membranes, no redness, no lesions. Neck: Neck supple, non-tender, no cervical lymphadenopathy. Lungs: Clear BARBARA to auscultation and percussion, No accessory muscle use. Cardio: Normal S1/S2, regular rhythm, no murmurs, no JVD Abdomen: Soft, non-tender, no palpable masses, peristalsis present, no guarding or rebound. Extremities: Symmetrical, no significant deformities, no peripheral edema , R index finger mildly tender to palpation but with improved swelling and erythema, R index finger improved motion, but still not full ROM, peripheral pulses presents. Skin: No rashes, no lesions, warm to touch. Neuro: No focal neurological deficits. motor and sensory intact Psych: Cooperative, appropriate mood and effect. Discharge Plan Plan Patient Disposition: HOME (Self Care) Disposition Comment: Hospitalist admit Care Plan Goals: Please follow-up with primary care physician within 1 week upon discharge You have been started on cephalexin 500 mg 4 times daily and doxycycline 100 mg twice daily for 9 more days. Wound care: Keep wound clean and dry and change dressing daily Watch for signs of infection such as worsening pain, purulent discharge, worsening swelling, worsening of redness Keep hand elevated whenever possible to reduce swelling Avoid activities that could cause the wound to reopen or become irritated or infected such as gardening work until wound has closed. Please come back to the ED if you develop fevers, chills, worsening pain, worsening swelling or any other worsening symptoms. Prescriptions/Referrals Prescriptions/Med Rec: New doxycycline hyclate 100 mg capsule 100 mg PO BID Qty: 18 0RF cephalexin 500 mg capsule 500 mg PO QID 9 Days Qty: 36 0RF Referrals: Kellie Jules [Primary Care Provider] - Patient/Caregiver Discharge Instructions Education Materials: Discharge Instructions for Cellulitis Print Language: Armenian Activity Restrictions/Additional Instructions: Please follow-up with primary care physician within 1 week upon discharge You have been started on cephalexin 500 mg 4 times daily and doxycycline 100 mg twice daily for 9 more days. Wound care: Keep wound clean and dry and change dressing daily Watch for signs of infection such as worsening pain, purulent discharge, worsening swelling, worsening of redness Keep hand elevated whenever possible to reduce swelling Avoid activities that could cause the wound to reopen or become irritated or infected such as gardening work until wound has closed. Please come back to the ED if you develop fevers, chills, worsening pain, worsening swelling or any other worsening symptoms. Stand Alone Forms: Jackie Award Info., Patient Portal Info Letter Discharge Order Discharge Orders: Discharge (Routine); Ordered 01/07/25 Ordered By: Benji Irene Quality Discharge Quality Measures VTE prophylaxis Attestestation Attestation I reviewed labs, imaging, EKG, home medications and prior available records. Face to face evaluation was performed by me. I have personally examined the patient and discussed assessment and plan with the IM team. I reviewed the resident note and agree with the plan with exceptions as below. Cellulitis of the index finger, right Will discharge on Keflex and doxycycline Return to ED if symptoms got worse or if there is purulent discharge Continue self wound care at home Time spent is 35 minutes. More than 50% of the time was spent on patient education and coordination of care.
== END 2025-01-07 12:57 | disposition home or self-care (01) | DRG 603 ==
LOC: SERX 10:04 → SERHOLD 12:13 → S3SX 14:25
PROVIDERS: Physician Assistant; Admitting Provider Internal Medicine; Emergency Provider Emergency Medicine; PCP Internal Medicine; Visit Provider Student in an Organized Health Care Education/Training Program
DX: L03.011 Cellulitis of right finger (principal); S61.239A Puncture wound without foreign body of unspecified finger without damage to nail, initial encounter; E06.3 Autoimmune thyroiditis; W22.8XXA Striking against or struck by other objects, initial encounter
CPT/HCPCS: 36415; 73140; 80053; 83605; 83735; 84100; 84145; 84443; 85025; 85652; 86140; 87040; 96365; 96366; 96368; 99285; J2543; J3370; A9270

== ENCOUNTER 2025-03-24 17:52 | Emergency (ER) | payer MEDICARE, BC, SELFPAY ==
[2025-03-24 17:59] VITALS: PULSE 84; RESP 16; O2SAT 98
--- NOTE | 2025-03-24 18:01 | XR_ITS ---
Examination:Left hip AP, lateral, AP pelvis 3 views Technique: Hip AP lateral, AP pelvis, 3 views Exam date and time:March 24, 2025 1839 hours INDICATIONS: Injury to the hip today, hip pain and deformity. FINDINGS: Dislocation of the prosthetic femoral head relative to the prosthetic acetabulum The prosthetic femoral head is displaced cephalad Right hip intact Bones of the pelvis intact IMPRESSION: Prosthetic left hip dislocation.
[2025-03-24 18:08] VITALS: BMI 23.5
--- NOTE | 2025-03-24 18:17 | PC.NURSE ---
PATIENT ARRIVED ED VIA EMS WITH COMPLAINT OF LEFT HIP PAIN. PATIENT STATES SHE WAS BENDING OVER AND FELT A POP IN HER HIP. SHORTENING AND ROTATION TO LEFT LEG. PATIENT RECEIVED FENTYNAL 62 MEQ, TYLENOL 1000MG IV FOR PAIN 10/10 ON PAIN SCALE. UPON ARRIVAL PATIENT WITH PAIN 3/10. PATIENT MOVED TO [facility] AND PLACED IN GOWN AND ON MONITOR. PATIENT GIVEN CALL LIGHT AND WILL CONTINUE TO MONITOR.
[2025-03-24 18:21] VITALS: BP 127/74; PULSE 79; RESP 18; TEMP 37; O2SAT 96
[2025-03-24 18:22] VITALS: BP 127/74; PULSE 75; RESP 16; O2SAT 100
[2025-03-24 18:28] LABS: Basophils # (Auto) 0.0 Thou/mm3 (0.0-0.2); Basophils % (Auto) 1 % (0-2.5); Eosinophils # (Auto) 0.0 Thou/mm3 (0.0-0.5); Eosinophils % (Auto) 0 % (0-10); Hematocrit 36.5 % (36.0-46.0); Hemoglobin 12.5 g/dL (12.0-16.0); Immature Granulocytes Auto 0.04 Thou/mm3 (0.00-0.00); Lymphocytes # (Auto) 1.1 Thou/mm3 (1.0-4.8); Lymphocytes % (Auto) 17 % (10-50); Mean Corpuscular HGB Conc 34.2 g/dl (31.0-37.0); Mean Corpuscular Hemoglobin 31.0 pg (25.0-35.0); Mean Corpuscular Volume 91 fL (80-100); Monocytes # (Auto) 1.2 Thou/mm3 (0.0-0.8); Monocytes % (Auto) 18 % (0-12); Neutrophils # (Auto) 4.1 Thou/mm3 (1.8-7.7); Neutrophils % (Auto) 63 % (37-80); Nucleated Red Blood Cell # 0.00 Thou/mm3 (0.00-0.00); Nucleated Red Blood Cell % 0 /100 WBC (0); Platelet Count 177 Thou/mm3 (140-440); RDW Standard Deviation 47.2 fL (36.4-46.3); Red Blood Count 4.03 Miln/mm3 (4.00-5.20); White Blood Count 6.4 Thou/mm3 (3.6-11.0)
[2025-03-24 18:47] LABS: Alanine Aminotransferase 11 U/L (10-49); Albumin, Serum 4.8 gm/dL (3.4-4.8); Albumin/Globulin Ratio 2.1 (1.2-2.2); Alkaline Phosphatase 52 U/L (46-116); Anion Gap 10 (7-16); Aspartate Amino Transferase 17 U/L (0-34); BUN/Creatinine Ratio 14 Ratio (12-20); Bilirubin,Total 0.7 mg/dL (0.3-1.2); Blood Urea Nitrogen 11 mg/dL (9-23); Calcium 10.5 mg/dL (8.3-10.6); Calcium (Corrected) 10.5 mg/dL (8.5-10.1); Carbon Dioxide 27.5 mMol/L (20.0-31.0); Chloride 102 mMol/L (98-107); Creatinine (Component) 0.8 mg/dL (0.6-1.3); Estimated Creatinine Clearance 60.0 mL/min (>60); Globulin 2.3 gm/dL (2.3-3.5); Glucose 124 mg/dL (74-106); Osmolality,Calculated 277 (275-295); Potassium 3.8 mMol/L (3.4-5.1); Sodium 139 mMol/L (136-145); Total Protein 7.1 gm/dL (5.7-8.2); eGFR > 60 See Note
--- NOTE | 2025-03-24 19:18 | EDNOTE_ITS ---
Lower Extremity Injury RME/HPI General Chief Complaint: Hip Injury/Pain Stated Complaint: LEFT HIP PAIN Time Seen by Provider: 03/24/25 18:01 Source: patient and EMS Arrival date/time: 03/24/25 17:52 Mode of arrival: EMS Limitations: no limitations RME / HPI RME / HPI Narrative: Patient is a 74-year-old female with a history of hypothyroidism. She is brought in by EMS for left hip pain. She has a history of a total left hip replacement that was performed in [place], [place]. She states today she was in her long, she bent over, she felt a pop and sat herself on the ground. She states she has left hip pain and has been unable to ambulate. She has left leg shortening. She denies any traumatic injury otherwise. She received 60 mics of fentanyl en route by EMS. EMS reports distal pulses that are marked. There were no other reported injuries. Patient has no other complaints or concerns. Related Data Previous Rx's ?Medication ?Instructions ?Recorded doxycycline hyclate 100 mg capsule 100 mg PO BID #18 c aps 01/07/25 Allergies Allergy/AdvReac Type Severity Reaction Status Date / Time latex Allergy Severe RASH ALL Verified 05/15/21 15:21 OVER peanut Allergy Severe Swelling Verified 05/15/21 15:21 of Lip/Tongue/Throat Review of Systems Review of Systems Systems Reviewed: All systems reviewed, normal except as documented ED Exam General Limitations: Present no limitations General appearance: Present alert and in no apparent distress Head Head exam: Present atraumatic Eye Eye exam: Present normal appearance, PERRL and EOMI ENT ENT exam: Present normal exam, normal oropharynx and mucous membranes moist Neck Neck exam: Present normal inspection, full ROM and trachea midline Chest Chest inspection: Present normal inspection and symmetric chest wall rise Respiratory Respiratory exam: Present normal lung sounds bilaterally Cardiovascular Cardiovascular exam: Present regular rate, normal rhythm and normal heart sounds Abdominal Exam Abdominal exam: Present soft and normal bowel sounds Extremities Exam Extremities exam: Present other (There is left leg shortening, left leg is rotated internally. +2 pedal pulses are intact.) Neurological Exam Neurological exam: Present alert, oriented X3 and CN II-XII intact Psychiatric Psychiatric exam: Present normal affect and normal mood Skin Skin exam: Present warm, dry, intact and normal color Course Quality Measures none Orders Category Date Time Status XR hip LT w pelvis 2-3V Stat Exams 03/24/25 18:01 Completed CBC Stat Lab 03/24/25 18:21 Completed CMP [Comprehensive Metabolic Panel] Stat Lab 03/24/25 18:21 Completed HYDROmorphone INJ [Dilaudid Inj] Med 03/24/25 18:51 Discontinued 1 mg IVP X1 ONE Vital Signs Vital signs: Vital Signs Temperature 98.6 F 03/24/25 18:21 Pulse Rate 79 03/24/25 18:21 Respiratory Rate 18 03/24/25 18:21 Blood Pressure 127/74 03/24/25 18:21 Pulse Oximetry (%) 96 03/24/25 18:21 Oxygen Delivery Method Room Air 03/24/25 18:21 Extremity Injury, Lower MDM Narrative MDM Narrative:: Patient is a 74-year-old female with a history of hypothyroidism. She is brought in by EMS for left hip pain. She has a history of a total left hip replacement that was performed in [place], [place]. She states today she was in her long, she bent over, she felt a pop and sat herself on the ground. She states she has left hip pain and has been unable to ambulate. She has left leg shortening. She denies any traumatic injury otherwise. She received 60 mics of fentanyl en route by EMS. EMS reports distal pulses that are marked. There were no other reported injuries. Patient has no other complaints or concerns. On exam, patient is uncomfortable appearing but in no extreme distress. She has shortening of the left leg with internal rotation. There is no open wounds. She has no other sites of injury. +2, pedal pulses are intact bilaterally and are marked with a pen. Her CBC and CMP are unremarkable. Plain films were obtained which reveal a prosthetic hip dislocation with no fracture. Patient's pain has been controlled here in the ER. We do not have orthopedics on-call for consultation. Case was discussed with [facility] in [place], [place]. Unfortunately were able to transfer overnight. Their transfer center anticipate possible acceptance in the morning. This was discussed with the patient. I offered more pain medication. She states she simply wanted Tylenol and nothing else. Patient's care is signed out to Dr. Leach at shift change. Patient data External records reviewed:: [facility] previous records and EMS form Clinical information provided by:: patient and EMS Social determinants that could affect healthcare access:: none Patient has the following chronic illnesses:: n/a How is presenting disease/condition affected by chronic disease/condition?: uneffected by Evaluation data The following diagnostics were reviewed and interpreted by me:: lab results (CBC and CMP are unremarkable) and radiology exam(s) (Left-sided prosthetic hip dislocation) Lab and/or radiology exams considered but not ordered:: n/a Interpretation Summary: Left-sided hip dislocation Medications / Prescriptions Medications or Prescriptions considered but not ordered:: n/a Medication administrations:: Medication Administration History Discontinued Medications Hydromorphone HCl (Hydromorphone Inj 2 Mg/Ml Vial) 1 mg IVP X1 ONE Stop: 03/24/25 18:52 Last Admin: 03/24/25 23:15 Dose: Not Given Documented By: BD Non-Admin Reason: Patient Refused See above Consultations Consultation(s) initiated? (list below): No Diagnosis Extremity Injury, Lower Differential Diagnosis: fracture of femur and fracture of hip Most likely diagnosis given after review of the tests above:: Prostatic hip dislocation Admission Indicated Admission indicated?: indicated Admission Request Was there a request for admission?: Yes Admission Attestation Admission request attestation: Discussed case with [] from Hospitalist service regarding admission. Discussed patients ED course, exam findings, labs, and radiology results. The Hospitalist [agrees,declines] to accept the patient for admission. Disposition Plan Disposition Plan: Transfer Discharge Plan Plan Patient Disposition: [facility] Facility Pt Being Transferred to: [facility] Service Needed for Transfer: Orthopedics Patient condition on transfer: Stable Prescriptions/Referrals Prescriptions/Med Rec: No Action doxycycline hyclate 100 mg capsule 100 mg PO BID Qty: 18 0RF Referrals: No Primary/Family,Physician [Primary Care Provider] - In 1 week Problem List Clinical Impression: Dislocation of hip prosthesis Patient/Caregiver Discharge Instructions Print Language: Spanish Stand Alone Forms: Jackie Award Info., Patient Portal Info Letter
--- NOTE | 2025-03-24 19:37 | PC.NURSE ---
will hold pain medication as pt is not wanting at this time as pain is tolerable
[2025-03-24 21:35] VITALS: BP 114/69; PULSE 66; RESP 20; TEMP 36.6; O2SAT 97
--- NOTE | 2025-03-24 21:52 | PC.NURSE ---
PT STILL NOT WANTING PAIN MEDICATION
--- NOTE | 2025-03-24 23:51 | PD.EDADDENDU ---
Emergency Room Addendum <Marleni Serrano - Last Filed: 03/24/25 23:51> Addendum Narrative: I took over the care from Denise Tracey PA-C, at 11 PM on 03/24/25. See previous notes for complete H & P and ED course. I reviewed all diagnostic test results. Diagnoses include: Treatment here included At 6 AM on 03/24/2025, the care of the patient was transferred to Dr. Pulliam. Estuardo Leach MD <Estuardo Leach MD - Last Filed: 03/25/25 02:00> Addendum Narrative: I took over the care from Denise Valencia PA-C at 11 PM on 03/24/25. See previous notes for complete H & P and ED course. Diagnoses include: Dislocation of left hip prosthesis. Waiting for transfer to [facility]. At 6 AM on 03/24/2025, the care of the patient was transferred to Dr. Pulliam. During my watch, the patient remained stable. Estuardo Leach MD
[2025-03-25] VITALS (7 sets, daily range): BP systolic 117–147; BP diastolic 73–83; PULSE 57–82; RESP 15–18; TEMP 36.8–37; O2SAT 94–98
--- NOTE | 2025-03-25 05:23 | PC.NURSE ---
GENE FROM [facility] TRANSFER CALLED FOR UPDATED VITALS
[2025-03-25] MEDS: ACETAMINOPHEN 500 MG TABLET 1000 MG PO (06:19)
--- NOTE | 2025-03-25 06:46 | PD.EDADDENDU ---
Emergency Room Addendum Addendum Narrative: 0600: Care assumed from Dr. Leach, the previous shift emergency physician. Past medical, surgical, social and family history reviewed. Vitals and home medications reviewed. I will assume the care of the patient at this time, pending transfer to [facility]. Please refer to the emergency department record for history and examination from initial visit.? Physical exam by me shows patient under no acute distress at this time. 0710: Patient accepted by Dr. Waller for transfer to [facility], ER to ER. 0745: EMS here to transport the patient to [facility].
--- NOTE | 2025-03-25 07:10 | PC.NURSE ---
Accepting info. Castellanos at [facility], Dr. Waller accepting ER to ER, nurse to nurse report #[phone], charge nurse Argenis horan.
--- NOTE | 2025-03-25 07:30 | PC.NURSE ---
Report received from pm nurse, patient lying in gurney queitly in supine postion, to er with c/o left hip dislocation and pain. Patient states she bent over yesterday and felt and heard left hip pop, patient had left knee replacement july 2024 +gordy equal pedal pulses cap refill<3sec, skin is cool dry and slightly pale, left hip shortened with inward rotation, patient awating [place] [facility] patient states pain 1/10 at this time, call light within reach.
--- NOTE | 2025-03-25 08:07 | PC.CC ---
0716: received call m ED Charge nurse Argenis requesting assistance with a transfer. ED received info at 0710 that pt was accepted [place] [facility] [place] Wall[place]. Transfer packet created by ED. I set up transportation for 10am pickling drum operator
[2025-03-25] MEDS: HYDROmorphone INJ 2 MG/ML VIAL 1 MG IVP (10:03)
[2025-03-25] MEDS: ONDANSETRON INJ 2 MG/ML INJ 2 ML 4 MG IVP (10:03)
--- NOTE | 2025-03-25 10:09 | PC.NURSE ---
Report given to Finisher Operator, Emily, here to transport patient to [facility].
== END 2025-03-25 10:10 | disposition short-term general hospital (02) ==
PROVIDERS: Physician Assistant Medical; Emergency Provider Family Medicine
DX: T84.021A Dislocation of internal left hip prosthesis, initial encounter (principal); Y83.8 Other surgical procedures as the cause of abnormal reaction of the patient, or of later complication, without mention of misadventure at the time of the procedure; E03.9 Hypothyroidism, unspecified; Z96.642 Presence of left artificial hip joint
CPT/HCPCS: 36415; 73502; 80053; 85025; 96374; 96375; 99283; J1171; J2405; A9270

== ENCOUNTER 2025-06-10 10:39 | Outpatient (AMB) | payer MEDICARE, BC, SELFPAY ==
--- NOTE | 2025-06-10 10:59 | ORTHONT_ITS ---
Vital signs 06/10/25 11:01 Height 1.7 m Height Method Measured Weight 76.912 kg Weight Measurement Method Standing Scale BMI 26.5 BP 119/81 Blood Pressure Source Automatic Cuff Blood Pressure Location Left Upper Arm Position Standing Respiration 18 Pulse 107 H Pulse Source Monitor Temp 98.0 F Temp Source Temporal Artery Scan Pulse Oximetry (%) 96 Oxygen Delivery Method Room Air Med/Allergies Allergies & Medications Allergies latex Allergy (Severe, Verified 06/10/25 11:02) RASH ALL OVER peanut Allergy (Severe, Verified 06/10/25 11:02) Swelling of Lip/Tongue/Throat Medication Reconciliation doxycycline hyclate 100 mg capsule 100 mg PO BID #18 caps 01/07/25 [Rx Confirmed 06/10/25] Exam Exam Patient is in no acute distress and is cooperative with the examination today. Breathing is nonlabored. In no respiratory distress. Patient has no paraspinal tenderness. Spinal deformity cannot be appreciated. The gait of the patient is nonantalgic Bilateral extremities were evaluated and demonstrates sensation intact to light touch. Palpable pedal pulses are present. No significant edema is present. Bilateral knees were examined and the patient has full strength and range of motion.. The right hip was examined. Patient was able to flex to 90 degrees, adduct to 30 degrees, abduct to 40 degrees, internally rotate to 20 degrees, and externally rotate to 20 degrees. Patient has a negative logroll. Stinchfield is negative. The patient is nontender diffusely to touch. The left hip was examined. Patient has no pain with logroll. Lower legs are equal I have no x-rays of the hip only the initial injury film from March 24, 2025 that demonstrates a dislocated hip Assessment and Plan Problem List (1) Hip dislocation, left: Status: Acute Plan: ASSESSMENT AND PLAN 1. Post-operative status following left total hip arthroplasty: The left total hip arthroplasty, performed in July, dislocated on 03/24/2025. No injections, physical therapy, or ibuprofen have been used since the dislocation. The hip appears to be in a satisfactory position based on the available information. Continue wearing the brace for an additional 2 weeks, then discontinue its use. Exercise caution during this period. An x-ray of the hip will be ordered to assess its current state. If the hip remains stable and shows signs of improvement, no further surgical intervention will be recommended unless complications arise. If the hip dislocates again, surgical intervention may be necessary. Driving is permitted, and the brace can be worn while driving. Patient education included avoiding activities that may risk another dislocation, such as bending over excessively. The patient was advised to call for an update on the x-ray results later today. Advanced Care Planning Discussion Advance care planning discussed with:: patient Office Procedures GNS Level of Care Nursing/Assessment Patient Status: Established Patient Nursing Assessment/Reassesment: Medication Reconciliation, Update PMH in EMR and Vital Signs Coordination of Care: Complex Care and Chronic Disease 1-5, Education Complex Pt/Fam, Consent,records obtained, informed consent, Lab and Imaging orders, Results/Orders obtained and Staff clarify orders Established Patient Charge Established Patient Point Assignment: 110 Established Patient Point Charge: EP Level 3 (80-115) MA Intake Visit Data Collection New Patient or Established: Established Patient (seen at [facility] within 3 years) Reason for Visit:: 2ND OPINION LEFT GOKUL Seen by Clinical Staff ONLY (RN/MA): No Consumer Safety Officer Required: No PCP or OBGYN visit in last 3 months: Yes Hx Now: No Do You Feel Safe at Home: Yes Authorities Contacted: N/A Questionairres Past Medical History Past Medical History Have you ever been diagnosed with any of the following: Cardiology Problems Congestive Heart Failure: No Respiratory Problems Chronic Obstructive Pulmonary Disease (COPD): No Asthma: No Genital/Urinary Problems Renal Disease: No Reproductive Problems Pelvic Inflammatory Disease: No Endocrine Problems Diabetes Mellitus Type 1: No Diabetes Mellitus Type 2: No Hypothyroidism: Yes Blood Problems Sickle Cell Disease: No Other Problems Anesthesia Reactions: No Subjective Visit Visit for: new patient and hip Immunization / Flu Flu Vaccine in the Last 12 Months: No Flu Vaccine Exclusion Criteria: Refused by Patient History of Present Illness Chief complaint: 2ND OPINION LEFT GOKUL HISTORY OF PRESENT ILLNESS I, Jadiel Diop, have obtained verbal consent from the patient, to be recorded during this encounter which may include, but not limited to, medical history, examination, treatment plans, and relevant health information.? Patient was info rmed that recording will be read and reviewed by myself before inclusion in the medical chart. The patient is a 74-year-old female who presents for a second opinion on the left total hip replacement. She underwent a left total hip replacement in July at [facility] in [place], performed for hip fracture. The initial injury occurred when her dog wrapped its leash around her, causing her to fall forward. The hip dislocated on 03/24/2025, and she has a photo of the x-ray showing the dislocation. The dislocation was reduced in the emergency room. She has not had injections, physical therapy, or ibuprofen since the surgery. She recalls another incident in November or December where she tripped over a brick bench, resulting in a large bruise between her knee and hip. Despite these incidents, she remains active and reports no current pain in her hip. She has been wearing a brace continuously for the past 2 months and has been performing physical therapy exercises, including ankle banding and knee down movements, which she repeats 30 times. She also performs butt crunches, which occasionally cause muscle discomfort. She has been careful with her movements but sometimes bends over when she should not. She finds it difficult to avoid bending over and picking things up, as she is used to doing all her own yard work and other tasks. She has been taking sponge baths for the first 2 months post-surgery and recently attempted to shower with the brace on. She underwent physical therapy for a month after the dislocation and was advised not to cross her legs. She reports no back pain. The patient is still wearing a hip spica brace. She has not had any dislocation since the original incident Personal History Red flag PMH: none BMI Counceling provided: Yes Pain Pain level (0-10): 0 Associated signs & symptoms: none Ambulatory data Ambulatory device: none Treatments Improvement with previous injections: No Improvement with PT: No Improvement with NSAIDS: no Review of Systems Review of Systems: All systems negative unless otherwise noted in HPI.
[2025-06-10 11:01] VITALS: BP 119/81; PULSE 107; RESP 18; TEMP 36.7; O2SAT 96; BMI 26.5
--- NOTE | 2025-06-10 11:13 | XR_ITS ---
Examination:Left hip AP, lateral, AP pelvis 3 views Technique: Hip AP lateral, AP pelvis, 3 views Exam date and time:June 10, 2025, 1141 hours INDICATIONS: Left hip fracture July 2024 dislocation March 2025 FINDINGS: Comparison March 24, 2025 Total left hip arthroplasty. Satisfactory alignment. No fracture No current dislocation Moderate to advanced narrowing right hip joint IMPRESSION: Total left hip arthroplasty with satisfactory alignment.
== END 2025-06-10 11:18 | disposition home or self-care (01) ==
LOC: HODSRG 10:39
PROVIDERS: Supervising Provider Orthopaedic Surgery Adult Reconstructive Orthopaedic Surgery; Visit Provider Orthopaedic Surgery Adult Reconstructive Orthopaedic Surgery
DX: Z96.642 Presence of left artificial hip joint (principal); S89.90XA Unspecified injury of unspecified lower leg, initial encounter; W18.49XA Other slipping, tripping and stumbling without falling, initial encounter
CPT/HCPCS: 73502; 99213; G0463

== ENCOUNTER 2025-09-01 09:06 | Emergency (ER) | payer MEDICARE, BC, SELFPAY ==
[2025-09-01] VITALS (18 sets, daily range): BP systolic 119–159; BP diastolic 62–91; PULSE 65–101; RESP 15–20; TEMP 36.7–37.3; O2SAT 95–100; BMI 27.3
--- NOTE | 2025-09-01 09:19 | PC.NURSE ---
PATIENT ARRIVED VIA EMS SECONDARY TO SLIP AND FALL OUTSIDE, PATIENT WITH COMPLAINT OF LEFT HIP PAIN WITH INTERNAL ROTATION. EMS ESTABLISHED IV AND ADMINISTERED 75 MICROGRAMS WITH PAIN RELIEF 2/10 ON PAIN SCALE AT TIME OF ARRIVAL. PATIENT STATES SHE HAS HISTORY OF HIP SURGERY IN MARCH OF 2025. PATIENT DENIES HITTING HEAD OR ANY OTHER PAIN AT TIME OF ASSESSMENT. PATIENT ABLE TO ASSIST WITH REDRESSING IN GOWN WITH MINIMAL PAIN TO LEFT HIP. PATIENT POSITION OF COMFORT IN SITTING POSITION. CALL LIGHT WITHIN REACH.
--- NOTE | 2025-09-01 09:59 | EKG_ITS ---
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
--- NOTE | 2025-09-01 09:59 | XR_ITS ---
Examination: CT pelvis without intravenous contrast. 2-D sagittal and coronal reconstructions. Date and time of exam: September 01, 2025, 1043 hours INDICATIONS: Patient fell this morning with injury to the left hip, left hip pain CTDI: vol (mGy) : 12.4 DLP: (mGycm) : 453 Technique: Multiple 3 mm axial sections of the pelvis have been obtained with the 64 slice high resolution scanner. 2-D sagittal and coronal reconstructions. Low dose protocols were performed. One or more of the following dose reduction techniques were used; automated exposure control, adjustment of the mA and/or KV according to patient size, use of iterative reconstruction technique. 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
--- NOTE | 2025-09-01 09:59 | XR_ITS ---
EXAMINATION: AP chest single view TECHNIQUE: AP portable upright chest single view Date and time: September 01, 2024, 1017 hours INDICATIONS: Coughing today. FINDINGS: Stable pulmonary nodule right lower lobe compared with 05/15/2021 Normal heart size Suspicious for early pneumonia left base Prominent osteopenia IMPRESSION: Suspicious for early pneumonia left base
[2025-09-01] MEDS: SODIUM CHLORIDE 0.9% 1000 ML 1,000 ML 100 ML IV (10:07)
[2025-09-01 10:29] LABS: Basophils # (Auto) 0.0 Thou/mm3 (0.0-0.2); Basophils % (Auto) 1 % (0-2.5); Eosinophils # (Auto) 0.0 Thou/mm3 (0.0-0.5); Eosinophils % (Auto) 0 % (0-10); Hematocrit 39.1 % (36.0-46.0); Hemoglobin 12.7 g/dL (12.0-16.0); Immature Granulocytes Auto 0.11 Thou/mm3 (0.00-0.00); Lymphocytes # (Auto) 0.9 Thou/mm3 (1.0-4.8); Lymphocytes % (Auto) 18 % (10-50); Mean Corpuscular HGB Conc 32.5 g/dl (31.0-37.0); Mean Corpuscular Hemoglobin 30.3 pg (25.0-35.0); Mean Corpuscular Volume 93 fL (80-100); Monocytes # (Auto) 1.2 Thou/mm3 (0.0-0.8); Monocytes % (Auto) 23 % (0-12); Neutrophils # (Auto) 2.9 Thou/mm3 (1.8-7.7); Neutrophils % (Auto) 57 % (37-80); Nucleated Red Blood Cell # 0.00 Thou/mm3 (0.00-0.00); Nucleated Red Blood Cell % 0 /100 WBC (0); Platelet Count 199 Thou/mm3 (140-440); RDW Standard Deviation 50.4 fL (36.4-46.3); Red Blood Count 4.19 Miln/mm3 (4.00-5.20); White Blood Count 5.2 Thou/mm3 (3.6-11.0)
[2025-09-01 10:46] LABS: Alanine Aminotransferase 12 U/L (10-49); Albumin, Serum 4.7 gm/dL (3.4-4.8); Albumin/Globulin Ratio 1.5 (1.2-2.2); Alkaline Phosphatase 60 U/L (46-116); Anion Gap 8 (7-16); Aspartate Amino Transferase 18 U/L (0-34); BUN/Creatinine Ratio 16 Ratio (12-20); Bilirubin,Total 1.1 mg/dL (0.3-1.2); Blood Urea Nitrogen 11 mg/dL (9-23); Calcium 10.3 mg/dL (8.3-10.6); Calcium (Corrected) 10.3 mg/dL (8.5-10.1); Carbon Dioxide 27.9 mMol/L (20.0-31.0); Chloride 106 mMol/L (98-107); Creatinine (Component) 0.7 mg/dL (0.6-1.3); Estimated Creatinine Clearance 75.2 mL/min (>60); Globulin 3.1 gm/dL (2.3-3.5); Glucose 105 mg/dL (74-106); Osmolality,Calculated 282 (275-295); Potassium 4.1 mMol/L (3.4-5.1); Sodium 142 mMol/L (136-145); Total Protein 7.8 gm/dL (5.7-8.2); eGFR > 60 See Note
[2025-09-01 10:47] LABS: INR 1.0 (0.9-1.3); Partial Thromboplastin Time 28.3 Seconds (22.0-36.0); Prothrombin Time 10.8 Seconds (9.0-12.2)
[2025-09-01 12:30] LABS: Collection Type, Urine Clean Catch
--- NOTE | 2025-09-01 12:32 | PD.EDFALL ---
ED Fall Injury RME/HPI General Chief Complaint: Extremity Injury, Lower Stated Complaint: LEG PAIN Time Seen by Provider: 09/01/25 09:10 Arrival date/time: 09/01/25 09:06 Limitations: no limitations RME / HPI RME / HPI Narrative: 75 year old female with history of hypothyroidism, s/p left hip replacement presents to the ED BIB from home for evaluation of left hip pain following a ground level fall today. 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 Immediately followed by pain to the left hip that was aggravated with movements. States she was unable to get up on her own and required assistance from EMS. Per medics, on scene the patient was noted to be in distress and given 75mcg of Fentanyl with some improvement. Reportedly had experienced similar pain back in March of this year and during that time had left hip surgery performed at [facility]. No other injuries or complaints reported. No head injury or LOC. Related Data Previous Rx's ?Medication ?Instructions ?Recorded doxycycline hyclate 100 mg capsule 100 mg PO BID #18 caps 01/07/25 Allergies Allergy/AdvReac Type Severity Reaction Status Date / Time latex Allergy Severe RASH ALL Verified 06/10/25 11:02 OVER peanut Allergy Severe Swelling Verified 06/10/25 11:02 of Lip/Tongue/Throat Review of Systems Review of Systems Systems Reviewed: All systems reviewed, normal except as documented Past Medical History Past Medical History ENDOCRINE: Positive Hypothyroidism Surgical History SURGICAL: Negative Cardiac Surgery Social History SMOKING STATUS: Never smoker ED Exam General Limitations: Present no limitations General appearance: Present alert and in no apparent distress Head Head exam: Present atraumatic, normocephalic and normal inspection Eye Eye exam: Present normal appearance, PERRL and EOMI ENT ENT exam: Present normal exam, normal oropharynx and mucous membranes moist Neck Neck exam: Present normal inspection, full ROM and trachea midline Chest Chest inspection: Present normal inspection and symmetric chest wall rise Respiratory Respiratory exam: Present normal lung sounds bilaterally Cardiovascular Cardiovascular exam: Present regular rate, normal rhythm and normal heart sounds Abdominal Exam Abdominal exam: Present soft and normal bowel sounds Extremities Exam Extremities exam: Present other (Left hip tenderness to palpation, limited ROM due to pain) Back Exam Back exam: Present normal inspection and full ROM Neurological Exam Neurological exam: Present alert, oriented X3 and CN II-XII intact Psychiatric Psychiatric exam: Present normal affect and normal mood Skin Skin exam: Present warm, dry, intact and normal color Course Quality Measures none Orders Category Date Time Status 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 Care 09/01/25 09:59 Active Continuous Pulse Oximetry NOW Care 09/01/25 09:59 Completed EKG (ED ONLY) *Do not use* NOW Care 09/01/25 09:59 Completed Insert IV NOW Care 09/01/25 09:59 Active Procedural Sedation NOW Care 09/01/25 15:28 Active Referral - Recreational Vehicle Resort Manager Stat Cons 09/01/25 16:57 Active Referral Respiratory Therapy Stat Cons 09/01/25 15:[address] pelvis wo con Stat Exams 09/01/25 09:59 Completed EKG (ED Only) Stat Exams 09/01/25 09:59 Draft XR chest 1V portable Stat Exams 09/01/25 09:59 Completed CBC Stat Lab 09/01/25 10:17 Completed Comprehensive Metabolic Panel Stat Lab 09/01/25 10:17 Completed Partial Thromboplastin Time Stat Lab 09/01/25 10:17 Completed Prothrombin Time with INR Stat Lab 09/01/25 10:17 Completed Urinalysis Stat Lab 09/01/25 12:00 Completed HYDROmorphone INJ [Dilaudid Inj] Med 09/01/25 17:08 Discontinued 1 mg IVP X1 ONE Ondansetron Inj [Zofran Inj] Med 09/01/25 17:08 Discontinued 4 mg IVP X1 ONE Propofol Inj [Diprivan Inj] Med 09/01/25 15:24 Discontinued 158 mg IV X1 ONE Sodium Chloride 0.9% 1000 ml [Ns] 1,000 ml Med 09/01/25 09:59 Active IV 100 mls/hr Vital Signs Vital signs: Vital Signs Temperature 98.1 F 09/01/25 09:23 Pulse Rate 88 09/01/25 09:23 Respiratory Rate 19 09/01/25 09:23 Blood Pressure 143/84 H 09/01/25 09:23 Pulse Oximetry (%) 97 09/01/25 09:23 Oxygen Delivery Method Room Air 09/01/25 09:23 Pulse ox is 97% on room air which is adequate. PROCEDURES: Orthopedic Joint Reduction Joint #1: Time Out Performed: Yes Side: Left Joint Reduction Location: hip Analgesia: procedural sedation Technique used: traction/counter-traction Post-reduction neuro exam: intact Post-reduction vascular: intact Post Reduction X-Ray Obtained: No (Reduction was not successfull ) Patient Tolerated Procedure: well Additional Comments: Reduction was not successful despite multiple attempts Procedural Sedation Indication: fracture/dislocation reduction ASA: 2 Preparation: director targeted marketing applied, pulse oximeter, capnometry used and supplemental O2 applied IV Propofol dose (mg): 158 Patient Tolerated Procedure: well and no complications Complications: none Interventions: oxygen applied Fall MDM Narrative MDM Narrative:: Belinda Cedillo am scribing for and in the presence of Dr. Pulliam. 1213: I sent a video message to ortho Dr. Diop. 1224: I spoke with ortho Dr. Diop. Discussed patients PMHx, HPI, ED course, exam findings, labs, and radiology results. States he is not available and advised transferring. I attempted left hip reduction that was unsuccessful despite multiple attempts. 1800: Care signed out to Dr. Leach pending transfer for ortho. Patient data External records reviewed:: [facility] previous records and EMS form Clinical information provided by:: patient and EMS Social determinants that could affect healthcare access:: none Patient has the following chronic illnesses:: Hypothyroidism, s/p left hip replacement How is presenting disease/condition affected by chronic disease/condition?: exacerbated by Evaluation data The following diagnostics were reviewed and interpreted by me:: lab results, radiology exam(s) and EKG tracing(s) (EKG @ 10:06 am, interpreted by me, normal sinus rhythm with first degree AV block, rate 78, no STEMI. ) Lab and/or radiology exams considered but not ordered:: None Interpretation Summary: Ordering Physician: Lamin Pulliam MD Date of Service: 09/01/25 Procedure(s): XR chest 1V portable Accession Number(s): [id number] cc: Lamin Pulliam MD; Kellie Jules MD; Gonzalez Tomas MD~ EXAMINATION: AP chest single view TECHNIQUE: AP portable upright chest single view Date and time: September 01, 2024, 1017 hours INDICATIONS: Coughing today. FINDINGS: Stable pulmonary nodule right lower lobe compared with 05/15/2021 Normal heart size Suspicious for early pneumonia left base Prominent osteopenia IMPRESSION: Suspicious for early pneumonia left base Dictated By: Gonzalez Tomas MD Signed By: <Electronically signed by Gonzalez Toams MD in OV> 09/01/25 1043 Ordering Physician: Lamin Pulliam MD Date of Service: 09/01/25 Procedure(s): CT pelvis wo con Accession Number(s): [id number] cc: Lamin Pulliam MD; Kellie Jules MD; Gonzalez Tomas MD~ Examination: CT pelvis without intravenous contrast. 2-D sagittal and coronal reconstructions. Date and time of exam: September 01, 2025, 1043 hours INDICATIONS: Patient fell this morning with injury to the left hip, left hip pain CTDI: vol (mGy) : 12.4 DLP: (mGycm) : 453 Technique: Multiple 3 mm axial sections of the pelvis have been obtained with the 64 slice high resolution scanner. 2-D sagittal and coronal reconstructions. Low dose protocols were performed. One or more of the following dose reduction techniques were used; automated exposure control, adjustment of the mA and/or KV according to patient size, use of iterative reconstruction technique. 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 Dictated By: Gonzalez Tomas MD Signed By: <Electronically signed by Gonzalez Tomas MD in OV> 09/01/25 1100 Medications / Prescriptions Medications or Prescriptions considered but not ordered:: None Medication administrations:: Medication Administration History Sodium Chloride (Ns) 1,000 mls @ 100 mls/hr IV .Q10H ONE Stop: 09/01/25 19:58 Last Admin: 09/01/25 10:07 Dose: 100 mls/hr Documented By: SM Discontinued Medications Hydromorphone HCl (Hydromorphone Inj 2 Mg/Ml Vial) 1 mg IVP X1 ONE Stop: 09/01/25 17:09 Last Admin: 09/01/25 17:14 Dose: 1 mg Documented By: LANEY Ondansetron HCl (Ondansetron Inj 2 Mg/Ml Inj 2 Ml) 4 mg IVP X1 ONE; Protocol Stop: 09/01/25 17:09 Last Admin: 09/01/25 17:13 Dose: 4 mg Documented By: LANEY Propofol (Propofol Inj 10 Mg/Ml Vial 20 Ml) 158 mg 2 mg/kg (158 mg) IV X1 ONE Stop: 09/01/25 15:25 Last Admin: 09/01/25 16:12 Dose: 158 mg Documented By: LANEY See above Consultations Consultation(s) initiated? (list below): Yes Consultation #1 (Physician, Specialty, Details): See MDM Diagnosis Fall Differential Diagnosis: other (left hip fracture, left hip dislocation, fall injury) Most likely diagnosis given after review of the tests above:: Left hip dislocation Admission Indicated Admission indicated?: not indicated Explain why admission is indicated or not indicated:: Txfer for ortho Admission Request Was there a request for admission?: No Disposition Plan Disposition Plan: other (specify) (Signed out to Dr. Leach ) Discharge Plan Prescriptions/Referrals Prescriptions/Med Rec: No Action doxycycline hyclate 100 mg capsule 100 mg PO BID Qty: 18 0RF Referrals: Kellie Jules MD [Primary Care Provider] - In 1 week Problem List Clinical Impression: Hip dislocation, left Patient/Caregiver Discharge Instructions Print Language: [place]
[2025-09-01 12:36] LABS: Bilirubin,Urine Negative (Negative); Blood,Urine Negative (Negative); Clarity,Urine Clear (Clear/Hazy); Color,Urine Colorless (Lt Yel-Yel); Glucose, Urine Negative (Negative); Hyaline Casts,Urine < 1 /hpf (0-1); Ketones,Urine Negative (Negative); Leukocyte Esterase,Urine Positive (Negative); Nitrite,Urine Negative (Negative); PH,Urine 7.5 (5.0-7.0); Protein,Urine Negative (Neg - Trace); RBC,Urine 4 /hpf (0-3); Specific Gravity,Urine 1.008 (1.001-1.035); Squamous Epithelial Cell,Urine < 1 /hpf (0-5); Urobilinogen,Urine Negative mg/dL (0.0-1.0); WBC,Urine 23 /hpf (0-5)
[2025-09-01] MEDS: PROPOFOL INJ 10 MG/ML VIAL 20 ML 158 MG IV (16:12)
--- NOTE | 2025-09-01 16:43 | PC.NURSE ---
1600 PATIENT CONSENTED FOR CONSCIOUS SEDATION FOR LEFT HIP REDUCTION. DR. FREEMAN, RT AT BEDSIDE. 1611 TIME OUT, MEDICATION ADMINISTERED BY DR. FREEMAN. PATIENT TOLERATED PROCEDURE. UNABLE TO SUCCESSFULLY REDUCE LEFT HIP AT THIS TIME. PATIENT MONITORED POST SEDATION. PATIENT ABLE TO VERBALIZE UNDERSTAND OF POST PROCEDURE FOLLOW UP. WILL CONTINUE TO MONITOR PATIENT.
[2025-09-01] MEDS: ONDANSETRON INJ 2 MG/ML INJ 2 ML 4 MG IVP (17:13)
[2025-09-01] MEDS: HYDROmorphone INJ 2 MG/ML VIAL 1 MG IVP ×3 (17:14→22:12)
--- NOTE | 2025-09-01 17:38 | PC.CM ---
1700- Received call from ER MD Pulliam, request transfer for orthopedics continuity of care, patient had a left hip prosthesis at [facility] and is now here with left hip dislocation, he was unable to reduce with sedation in ER. Packet created and [place] [facility] [place] [facility] [place]
--- NOTE | 2025-09-01 18:41 | PD.EDADDENDU ---
Emergency Room Addendum Addendum Narrative: I took over the care from previous shift physician, Dr. Pulliam, at _6PM_ on _09/01/25_. See previous notes for complete H & P and ED course. I reviewed all diagnostic test results. Diagnoses include: Left hip dislocation I discussed the case with Edu. About the presentation and exam and diagnostics and treatments here. And need of further care there. Agreed to accept the patient. During my watch, the patient remained stable. Estuardo Leach MD
--- NOTE | 2025-09-01 20:27 | PC.NURSE ---
PT ACCEPTED BY DR MCGINNIS WITH [facility], REPORT TO [phone].
--- NOTE | 2025-09-01 20:29 | PC.NURSE ---
report called to transfer hospital
== END 2025-09-01 22:21 | disposition short-term general hospital (02) ==
PROVIDERS: Family Medicine; Emergency Provider Emergency Medicine; PCP Internal Medicine
DX: T84.021A Dislocation of internal left hip prosthesis, initial encounter (principal); W01.0XXA Fall on same level from slipping, tripping and stumbling without subsequent striking against object, initial encounter; Y79.2 Prosthetic and other implants, materials and accessory orthopedic devices associated with adverse incidents; E03.9 Hypothyroidism, unspecified
CPT/HCPCS: 27265; 36415; 71045; 72192; 80053; 81001; 85025; 85610; 85730; 93005; 96361; 96374; 96375; 96376; 99285; J1171; J2405; J2704; J7030